=== PATIENT | male | born 1990 | race Two or more races ===

== ENCOUNTER → 2024-07-05 | Emergency (ER) | payer OTHER ==
[~2024-07-05] VITALS: Ht 165.1 cm; Wt 61.2 kg
[~2024-07-05] MED LIST: CEFTRIAXONE SODIUM 1,000 MG VIAL IM ONE; CEFTRIAXONE SODIUM 1,000 MG VIAL ONE; DIPHTH,PERTUSS(ACELL),TET VAC 0.5 ML SYRINGE IM ONE; NURTEC ODT75 MG; TETANUS & DIPHTHERIA TOX,ADULT 0.5 ML VIAL IM ONE
== END | disposition home or self-care (01) ==
LOC: ER 17:18
DX: S01.511A Laceration without foreign body of lip, initial encounter (principal); W19.XXXA Unspecified fall, initial encounter; Y93.89 Activity, other specified; Y92.830 Public park as the place of occurrence of the external cause; Y99.8 Other external cause status; Z91.041 Radiographic dye allergy status
CPT/HCPCS: 12013; 90471; 90714; 96372; 99282; J0696; J1670